=== PATIENT | female | born 1970 | race Caucasian/White ===

== ENCOUNTER 2017-10-05 01:29 | Observation (INO) | payer BC ==
[2017-10-05 01:32] VITALS: BMI 42.9
[2017-10-05 02:16] LABS: BASO # 0.1 K/uL (0.0-0.2); BASO % 0.7 % (0.0-2.0); EOS # 0.1 K/uL (0.0-0.7); HEMOGLOBIN 13.1 g/dL (11.0-16.0); LYMPH # 3.5 K/uL (1.0-4.3); LYMPH % 38.1 % (20.0-40.0); MEAN CELL VOLUME 82.9 fL (81.0-99.0); MEAN CORPUSCULAR HEMOGLOBIN 27.7 pg (27.0-31.0); MEAN CORPUSCULAR HGB CONC 33.5 g/dL (33.0-37.0); MONO # 0.8 K/uL (0.0-0.8); MONO % 9.1 % (0.0-10.0); NEUT # 4.7 K/uL (1.8-7.0); NEUT % 51.1 % (50.0-75.0); NRBC % 0.1 % (0.0-2.0); RBC 4.73 Mil/uL (3.80-5.20); RED CELL DISTRIBUTION WIDTH 15.3 % (11.5-14.5); WHITE BLOOD COUNT 9.2 K/uL (4.8-10.8)
[2017-10-05 02:23] LABS: SQUAMOUS EPITHIAL 1 /hpf (0-5); URINE BILIRUBIN NEGATIVE (NEGATIVE); URINE BLOOD NEGATIVE (NEGATIVE); URINE CLARITY Clear (Clear); URINE COLOR Colorless (YELLOW); URINE GLUCOSE (UA) NORMAL (Normal); URINE LEUKOCYTE ESTERASE NEG Leu/uL (Negative); URINE PROTEIN NEGATIVE (NEGATIVE); URINE UROBILINOGEN NORMAL mg/dL (0.2-1.0)
--- NOTE | 2017-10-05 02:24 | C.PDOC ---
History Of Present Illness 47 yo female w/PMhx of Iron-def. anemia, lymphedema B/L legs, asthma, BIBA for evaluation of sudden onset of Left sided chest pain developed 2 hours [employer] associated with diaphoresis, radiating down to Left arm, left hand numbness. Pt admits, at present time, pain slightly improved. Otherwise, pt denies recent illness, fever, chills, headache, dizziness, neck pain, cough, wheezing, denies palpitation, dyspnea, abd. pain, V/D, back pain. At the time of evaluation, appears comfortable, not in any apparent distress. Time Seen by Provider: 10/05/17 02:05 Chief Complaint (Nursing): Chest Pain History Per: Patient Past Medical History Reviewed: Historical Data, Nursing Documentation, Vital Signs Vital Signs: Last Vital Signs Temp 98.5 F 10/05/17 01:40 Pulse 79 10/05/17 03:50 Resp 16 10/05/17 03:50 BP 120/67 10/05/17 03:50 Pulse Ox 100 10/05/17 05:54 - Medical History PMH: Anemia, Asthma, Peripheral Edema Denies: CAD, Cardia Arrhythmia, Cardiac Aneurysm, Hypercholesterolemia, Chronic Kidney Disease Surgical History: Denies: Pacemaker - [facility] Procedures ASPIR CURETT UTERUS NEC (11/03/14) ENDOMETRIAL ABLATION (11/03/14) HYSTEROSCOPY (11/03/14) INSERTION OF TOTALLY IMPLANTABLE VASC ACCESS DEVIC (05/25/14) Family History: States: Unknown Family Hx - Social History Hx Tobacco Use: No Hx Alcohol Use: No Hx Substance Use: No - Immunization History Hx Tetanus Toxoid Vaccination: No Hx Influenza Vaccination: No Hx Pneumococcal Vaccination: No Review Of Systems Except As Marked, All Systems Reviewed And Found Negative. Constitutional: Negative for: Fever, Chills Eyes: Negative for: Vision Change ENT: Negative for: Throat Pain Cardiovascular: Positive for: Chest Pain. Negative for: Palpitations, Orthopnea , Paroxysmal Noc. Dyspnea, Edema, Light Headedness Respiratory: Negative for: Cough, Shortness of Breath, Pleuritic Pain, Sputum, Wheezing Gastrointestinal: Negative for: Nausea, Vomiting, Abdominal Pain Genitourinary: Negative for: Incontinence Musculoskeletal: Negative for: Neck Pain, Back Pain Skin: Negative for: Rash Neurological: Negative for: Altered Mental Status, Headache, Dizziness Physical Exam - Physical Exam Appears: Well, Non-toxic, No Acute Distress Skin: Normal Color, Warm, Dry, No Rash Head: Normacephalic Eye(s): bilateral: PERRL Nose: No Flaring Oral Mucosa: Moist Throat: No Erythema, No Drooling Neck: Trachea Midline, Supple Cardiovascular: Rhythm Regular, No Murmur, No JVD, Other ((-) carotid bruits B/L ) Respiratory: No Decreased Breath Sounds, No Accessory Muscle Use, No Stridor, No Wheezing, No Plerual Rub Gastrointestinal/Abdominal: Soft, No Tenderness, No Distention, No Guarding Back: No CVA Tenderness Extremity: Normal ROM, No Deformity, Swelling (B/L diffuse legs edema, non- pitting) Neurological/Psych: Oriented x3, Normal Speech ED Course And Treatment - Laboratory Results Result Diagrams: 10/05/17 02:07 10/05/17 02:07 Lab Interpretation: No Acute Changes ECG: Interpreted By Me, Viewed By Me ECG Rhythm: Sinus Rhythm Interpretation Of ECG: SR@73/min, NAD, no acute T wave or ST-T changes. O2 Sat by Pulse Oximetry: 100 Pulse Ox Interpretation: Normal - Radiology CXR: Interpreted by Me, Viewed By Me CXR Interpretation: Yes: No Acute Disease Progress Note: On re-eval, pt reports mild improvemnet in chest pain after ED treatment. PMD was called #3, no answer. Admission discussed with med-on-call Amina Arenas and admission arranged. Disposition - Disposition Disposition: HOSPITALIZED Disposition Time: 03:28 Condition: STABLE Forms: [facility] ([place]) - Clinical Impression Clinical Impression: Chest pain
[2017-10-05 02:26] LABS: HCG,QUALITATIVE URINE NEGATIVE (NEGATIVE); INR 0.9; PROTHROMBIN TIME 9.6 SECONDS (9.7-12.2)
[2017-10-05 02:27] LABS: ALBUMIN 3.6 g/dL (3.5-5.0); ALT/SGPT 29 U/L (9-52); AST/SGOT 16 U/L (14-36); BLOOD UREA NITROGEN 15 mg/dL (7-17); CALCIUM 8.9 mg/dl (8.6-10.4); GFR AFRICAN-AMERICAN > 60; GFR NON-AFRICAN AMERICAN > 60
[2017-10-05] MEDS ORDERED: Aspirin 325 mg EC Tablets PO ONE (02:45)
[2017-10-05 03:03] LABS: B-TYPE NATRIURETIC PEPTIDE 87.5 pg/mL (0-450)
[2017-10-05] MEDS ORDERED: Enoxaparin 40 mg Syringe SC SCH (10:00)
--- NOTE | 2017-10-05 10:04 | CP.PCM.CON ---
History of Present Illness - History of Present Illness History of Present Illness: I was asked to evaluate patient by Dr Figueroa. Patient is a 47 year old female with a PMH HTN, hypercholesterolemia, anemia who presents with chest pain. Patient states she was at home when she developed pressure which woke her from sleep. She denies previous chest pain or dyspnea. She no longer has chest pain. Initial cardiac enzyme and pro BNP is normal. Review of Systems - Constitutional Constitutional: absent: As Per HPI, Anorexia, Chills, Daytime Sleepiness, Excessive Sweating, Fatigue, Fever, Frequent Falls, Headache, Increased Appetite , Lethargy, Malaise, Night Sweats, Snoring, Sleep Apnea, Weight Gain, Weight Loss, Weakness, Other - EENT Eyes: absent: As Per HPI, Blind Spots, Blurred Vision, Change in Vision, Decreased Night Vision, Diplopia, Discharge, Dry Eye, Exophthalmos, Floaters, Irritation, Itchy Eyes, Loss of Peripheral Vision, Pain, Photophobia, Requires Corrective Lenses, Sees Flashes, Spots in Vision, Tunnel Vision, Other Visual Disturbances, Loss of Vision, Other Ears: absent: As Per HPI, Decreased Hearing, Ear Discharge, Ear Pain, Tinnitus, Abnormal Hearing, Disequilibrium, Dizziness, Other Nose/Mouth/Throat: absent: As Per HPI, Epistaxis, Nasal Congestion, Nasal Discharge, Nasal Obstruction, Nasal Trauma, Nose Pain, Post Nasal Drip, Sinus Pain, Sinus Pressure, Bleeding Gums, Change in Voice, Dental Pain, Dry Mouth, Dysphagia, Halitosis, Hoarsness, Lip Swelling, Mouth Lesions, Mouth Pain, Odynophagia, Sore Throat, Throat Swelling, Tongue Swelling, Facial Pain, Neck Pain, Neck Mass, Other - Cardiovascular Cardiovascular: absent: As Per HPI, Acrocyanosis, Chest Pain, Chest Pain at Rest , Chest Pain with Activity, Claudication, Diaphoresis, Dyspnea, Dyspnea on Exertion, Edema, Irregular Heart Rhythm, Pain Radiating to Arm/Neck/Jaw, Leg Edema, Leg Ulcers, Lightheadedness, Orthopnea, Palpitations, Paroxysmal Nocturnal Dyspnea, Pedal Edema, Radiating Pain, Rapid Heart Rate, Slow Heart Rate, Syncope, Other - Respiratory Respiratory: absent: As Per HPI, Cough, Dyspnea, Hemoptysis, Dyspnea on Exertion , Wheezing, Snoring, Stridor, Pain on Inspiration, Chest Congestion, Excessive Mucous Production, Change in Mucous Color, Pain with Coughing, Other - Gastrointestinal Gastrointestinal: absent: As Per HPI, Abdominal Pain, Belching, Bloating, Change in Bowel Habits, Change in Stool Character, Coffee Ground Emesis, Constipation, Cramping, Diarrhea, Dyspepsia, Dysphagia, Early Satiety, Excessive Flatus, Fecal Incontinence, Heartburn, Hematemesis, Hematochezia, Loose Stools, Melena, Nausea, Odynophagia, Temesmus, Vomiting, Other - Genitourinary Genitourinary: absent: As Per HPI, Change in Urinary Stream, Difficulty Urinating, Dysuria, Flank Pain, Hematuria, Pyuria, Nocturia, Urinary Incontinence, Urinary Frequency, Urinary Hesitance, Urinary Urgency, Voiding Freq/Small Amts, Freq UTI, Hx Renal/Bladder Calculi, Hx /Renal Surgery, Bladder Distension, Other - Musculoskeletal Musculoskeletal: absent: As Per HPI, Abnormal Gait, Arthralgias, Atrophy, Back Pain, Deformity, Joint Swelling, Limited Range of Motion, Loss of Height, Muscle Cramps, Muscle Weakness, Myalgias, Neck Pain, Numbness, Radiating Pain into Limb, Stiffness, Tingling, Other - Integumentary Integumentary: absent: As Per HPI, Acne, Alopecia, Bleeding Lesions, Change in Hair, Change in Nails, Change in Pigmentation, Changing Lesions, Dry Skin, Erythema, Furuncle, Hirsutism, Lesions, New Lesions, Non-Healing Lesions, Photosensitivity, Pruritus, Rash, Skin Pain, Skin Ulcer, Sores, Striae, Swelling , Unusual Bruising, Wounds, Jaundice, Other - Neurological Neurological: absent: As Per HPI, Abnormal Gait, Abnormal Hearing, Abnormal Movements, Abnormal Speech, Behavioral Changes, Burning Sensations, Confusion, Convulsions, Disequilibrium, Dizziness, Numbness, Focal Weakness, Frequent Falls , Headaches, Lack of Coordination, Loss of Vision, Memory Loss, Paresthesias, Radicular Pain, Restless Legs, Sensory Deficit, Syncope, Tingling, Tremor, Vertigo, Weakness, Other Visual Disturbances, Other - Psychiatric Psychiatric: absent: As Per HPI, Abnormal Sleep Pattern, Anhedonia, Anxiety, Auditory Hallucinations, Behavioral Changes, Change in Appetite, Change in Libido, Confusion, Depression, Difficulty Concentrating, Hallucinations, Homicidal Ideation, Hopelessness, Irritability, Memory Loss, Mood Swings, Panic Attacks, Paranoia, Suicidal Ideation, Visual Hallucinations, Tactile Hallucinations, Other - Endocrine Endocrine: absent: As Per HPI, Change in Body Appearance, Change in Libido, Cold Intolorance, Deepening of Voice, Excessive Sweating, Fatigue, Flushing, Heat Intolorance, Increase in Ring/Shoe/Hat Size, Palpitations, Polydipsia, Polyphagia, Polyuria, Other - Hematologic/Lymphatic Hematologic: absent: As Per HPI, Easy Bleeding, Easy Bruising, Lymphadenopathy, Other Past Patient History - Past Medical History & Family History Past Medical History?: Yes - Past Social History Smoking Status: Never Smoked - CARDIAC Hx Cardia Arrhythmia: No Hx Hypercholesterolemia: No Hx Pacemaker: No Hx Peripheral Edema: Yes - PULMONARY Hx Asthma: Yes - NEUROLOGICAL Hx Neurological Disorder: No - HEENT Hx HEENT Problems: No - RENAL Hx Chronic Kidney Disease: No - ENDOCRINE/METABOLIC Hx Endocrine Disorders: No - HEMATOLOGICAL/ONCOLOGICAL Hx Anemia: Yes - INTEGUMENTARY Hx Dermatological Problems: No - MUSCULOSKELETAL/RHEUMATOLOGICAL Hx Musculoskeletal Disorders: No Hx Falls: No - GASTROINTESTINAL Hx Gastrointestinal Disorders: No - GENITOURINARY/GYNECOLOGICAL Hx Reproductive Disorders: Yes (FIBROIDS) - PSYCHIATRIC Hx Substance Use: No - SURGICAL HISTORY Hx Surgeries: Yes Hx Section: Yes Hx Orthopedic Surgery: Yes (RT ANKLE SX 2005) Hx Vascular Access Device: Yes (LIFEPORT) - ANESTHESIA Hx Anesthesia: Yes Hx Anesthesia Reactions: Yes (N/V) Hx Malignant Hyperthermia: No Meds Allergies/Adverse Reactions: Allergies Allergy/AdvReac Type Severity Reaction Status Date / Time Penicillins Allergy Verified 10/05/17 01:43 - Medications Medications: Current Medications Enoxaparin Sodium (Lovenox) 40 mg SC DAILY DA Physical Exam - Constitutional Appears: Non-toxic - Head Exam Head Exam: NORMAL INSPECTION - Eye Exam Eye Exam: Normal appearance - ENT Exam ENT Exam: Mucous Membranes Moist - Neck Exam Neck exam: Positive for: Full Rom - Respiratory Exam Respiratory Exam: NORMAL BREATHING PATTERN - Cardiovascular Exam Cardiovascular Exam: REGULAR RHYTHM - GI/Abdominal Exam GI & Abdominal Exam: Normal Bowel Sounds - Rectal Exam Rectal Exam: Deferred - Extremities Exam Extremities exam: Negative for: pedal edema - Back Exam Back exam: NORMAL INSPECTION - Neurological Exam Neurological exam: Alert, Oriented x3 - Psychiatric Exam Psychiatric exam: Normal Affect - Skin Skin Exam: Normal Color Results - Vital Signs Recent Vital Signs: Last Vital Signs Temp 98.7 F 10/05/17 08:57 Pulse 63 10/05/17 08:57 Resp 16 10/05/17 07:16 BP 124/80 10/05/17 08:57 Pulse Ox 98 10/05/17 08:57 - Labs Result Diagrams: 10/05/17 02:07 10/05/17 02:07 Labs: Laboratory Results - last 24 hr 10/05/17 10/05/17 10/05/17 02:07 02:07 02:15 WBC 9.2 D RBC 4.73 Hgb 13.1 Hct 39.3 MCV 82.9 D MCH 27.7 MCHC 33.5 RDW 15.3 H Plt Count 219 MPV 9.0 Neut % (Auto) 51.1 Lymph % (Auto) 38.1 [place] % (Auto) 9.1 Eos % (Auto) 1.0 Baso % (Auto) 0.7 Neut # (Auto) 4.7 Lymph # (Auto) 3.5 [place] # (Auto) 0.8 Eos # (Auto) 0.1 Baso # (Auto) 0.1 PT 9.6 L INR 0.9 APTT 71 H Sodium 140 Potassium 3.6 Chloride 104 Carbon Dioxide 26 Anion Gap 13 BUN 15 Creatinine 0.7 Est GFR ( Amer) > 60 Est GFR (Non-Af Amer) > 60 Random Glucose 141 H Calcium 8.9 Total Bilirubin 0.3 AST 16 ALT 29 Alkaline Phosphatase 120 Troponin I < 0.0120 NT-Pro-B Natriuret Pep Total Protein 7.2 Albumin 3.6 Globulin 3.6 Albumin/Globulin Ratio 1.0 TSH 3rd Generation Urine Color Urine Clarity Urine pH Ur Specific [place] Urine Protein Urine Glucose (UA) Urine Ketones Urine Blood Urine Nitrate Urine Bilirubin Urine Urobilinogen Ur Leukocyte Esterase Urine WBC (Auto) Urine RBC (Auto) Ur Squamous Epith Cells Urine HCG, Qual 10/05/17 10/05/17 02:15 02:45 WBC RBC Hgb Hct MCV MCH MCHC RDW Plt Count MPV Neut % (Auto) Lymph % (Auto) [place] % (Auto) Eos % (Auto) Baso % (Auto) Neut # (Auto) Lymph # (Auto) [place] # (Auto) Eos # (Auto) Baso # (Auto) PT INR APTT Sodium Potassium Chloride Carbon Dioxide Anion Gap BUN Creatinine Est GFR ( Amer) Est GFR (Non-Af Amer) Random Glucose Calcium Total Bilirubin AST ALT Alkaline Phosphatase Troponin I NT-Pro-B Natriuret Pep 87.5 Total Protein Albumin Globulin Albumin/Globulin Ratio TSH 3rd Generation 8.09 H Urine Color Colorless Urine Clarity Clear Urine pH 6.0 Ur Specific [place] 1.008 Urine Protein Negative Urine Glucose (UA) Normal Urine Ketones Negative Urine Blood Negative Urine Nitrate Negative Urine Bilirubin Negative Urine Urobilinogen Normal Ur Leukocyte Esterase Neg Urine WBC (Auto) < 1 Urine RBC (Auto) < 1 Ur Squamous Epith Cells 1 Urine HCG, Qual Negative - EKG Data EKG Interpreted by: Myself EKG shows normal: Sinus rhythm Assessment & Plan (1) Chest pain Assessment and Plan: initial troponin is negative. EKG normal sinus rhythm and pro BNP is normal. Recommend repeat troponin. If negative x 3, patient is table for discharge. Recommend [id number] stress test Status: Acute
--- NOTE | 2017-10-05 10:44 | RAD ---
HISTORY: chest pain chest pain COMPARISON: Comparison made with prior chest radiograph 07/18/2014 TECHNIQUE: Chest PA and lateral FINDINGS: In situ right IJ MediPort with tip in the SVC. LUNGS: Poor inspiration with low lung volumes, crowded bronchovascular markings and minor bibasilar atelectasis PLEURA: No significant pleural effusion identified. No pneumothorax apparent. CARDIOVASCULAR: Normal. OSSEOUS STRUCTURES: No significant abnormalities. VISUALIZED UPPER ABDOMEN: Normal. OTHER FINDINGS: None. IMPRESSION: Poor inspiration with low lung volumes, crowded bronchovascular markings and minor bibasilar atelectasis
--- NOTE | 2017-10-05 15:20 | CP.PCM.HP ---
Past Patient History - Past Medical History & Family History Past Medical History?: Yes - Past Social History Smoking Status: Never Smoked - CARDIAC Hx Cardia Arrhythmia: No Hx Hypercholesterolemia: No Hx Pacemaker: No Hx Peripheral Edema: Yes - PULMONARY Hx Asthma: Yes - NEUROLOGICAL Hx Neurological Disorder: No - HEENT Hx HEENT Problems: No - RENAL Hx Chronic Kidney Disease: No - ENDOCRINE/METABOLIC Hx Endocrine Disorders: No - HEMATOLOGICAL/ONCOLOGICAL Hx Anemia: Yes - INTEGUMENTARY Hx Dermatological Problems: No - MUSCULOSKELETAL/RHEUMATOLOGICAL Hx Musculoskeletal Disorders: No Hx Falls: No - GASTROINTESTINAL Hx Gastrointestinal Disorders: No - GENITOURINARY/GYNECOLOGICAL Hx Reproductive Disorders: Yes (FIBROIDS) - PSYCHIATRIC Hx Substance Use: No - SURGICAL HISTORY Hx Surgeries: Yes Hx Section: Yes Hx Orthopedic Surgery: Yes (RT ANKLE SX 2005) Hx Vascular Access Device: Yes (LIFEPORT) - ANESTHESIA Hx Anesthesia: Yes Hx Anesthesia Reactions: Yes (N/V) Hx Malignant Hyperthermia: No Meds Allergies/Adverse Reactions: Allergies Allergy/AdvReac Type Severity Reaction Status Date / Time Penicillins Allergy Verified 10/05/17 01:43 Physical Exam - Constitutional Appears: Well - Head Exam Head Exam: ATRAUMATIC, NORMAL INSPECTION, NORMOCEPHALIC - Eye Exam Eye Exam: EOMI, Normal appearance, PERRL Pupil Exam: NORMAL ACCOMODATION, PERRL - ENT Exam ENT Exam: Mucous Membranes Moist, Normal Exam - Neck Exam Neck exam: Positive for: Normal Inspection - Respiratory Exam Respiratory Exam: Decreased Breath Sounds - Cardiovascular Exam Cardiovascular Exam: REGULAR RHYTHM, +S1, +S2 - GI/Abdominal Exam GI & Abdominal Exam: Diminished Bowel Sounds, Soft - Rectal Exam Rectal Exam: Deferred Results - Vital Signs Recent Vital Signs: Last Vital Signs Temp 98.7 F 10/05/17 08:57 Pulse 63 10/05/17 08:57 Resp 16 10/05/17 07:16 BP 124/80 10/05/17 08:57 Pulse Ox 98 10/05/17 08:57 - Labs Result Diagrams: 10/05/17 02:07 10/05/17 02:07 Labs: Laboratory Results - last 24 hr 10/05/17 10/05/17 10/05/17 02:07 02:07 02:15 WBC 9.2 D RBC 4.73 Hgb 13.1 Hct 39.3 MCV 82.9 D MCH 27.7 MCHC 33.5 RDW 15.3 H Plt Count 219 MPV 9.0 Neut % (Auto) 51.1 Lymph % (Auto) 38.1 [place] % (Auto) 9.1 Eos % (Auto) 1.0 Baso % (Auto) 0.7 Neut # (Auto) 4.7 Lymph # (Auto) 3.5 [place] # (Auto) 0.8 Eos # (Auto) 0.1 Baso # (Auto) 0.1 PT 9.6 L INR 0.9 APTT 71 H Sodium 140 Potassium 3.6 Chloride 104 Carbon Dioxide 26 Anion Gap 13 BUN 15 Creatinine 0.7 Est GFR ( Amer) > 60 Est GFR (Non-Af Amer) > 60 Random Glucose 141 H Calcium 8.9 Total Bilirubin 0.3 AST 16 ALT 29 Alkaline Phosphatase 120 Troponin I < 0.0120 NT-Pro-B Natriuret Pep Total Protein 7.2 Albumin 3.6 Globulin 3.6 Albumin/Globulin Ratio 1.0 TSH 3rd Generation Urine Color Urine Clarity Urine pH Ur Specific [place] Urine Protein Urine Glucose (UA) Urine Ketones Urine Blood Urine Nitrate Urine Bilirubin Urine Urobilinogen Ur Leukocyte Esterase Urine WBC (Auto) Urine RBC (Auto) Ur Squamous Epith Cells Urine HCG, Qual 10/05/17 10/05/17 10/05/17 02:15 02:45 10:42 WBC RBC Hgb Hct MCV MCH MCHC RDW Plt Count MPV Neut % (Auto) Lymph % (Auto) [place] % (Auto) Eos % (Auto) Baso % (Auto) Neut # (Auto) Lymph # (Auto) [place] # (Auto) Eos # (Auto) Baso # (Auto) PT INR APTT Sodium Potassium Chloride Carbon Dioxide Anion Gap BUN Creatinine Est GFR ( Amer) Est GFR (Non-Af Amer) Random Glucose Calcium Total Bilirubin AST ALT Alkaline Phosphatase Troponin I < 0.0120 NT-Pro-B Natriuret Pep 87.5 Total Protein Albumin Globulin Albumin/Globulin Ratio TSH 3rd Generation 8.09 H Urine Color Colorless Urine Clarity Clear Urine pH 6.0 Ur Specific [place] 1.008 Urine Protein Negative Urine Glucose (UA) Normal Urine Ketones Negative Urine Blood Negative Urine Nitrate Negative Urine Bilirubin Negative Urine Urobilinogen Normal Ur Leukocyte Esterase Neg Urine WBC (Auto) < 1 Urine RBC (Auto) < 1 Ur Squamous Epith Cells 1 Urine HCG, Qual Negative
[2017-10-05 16:07] VITALS: BP 108/73; PULSE 84; RESP 20; TEMP 98.2; O2SAT 96
[2017-10-05 19:00] LABS: CK-MB < 0.22 ng/mL (0.0-3.38)
--- NOTE | 2017-10-08 08:46 | CARD ---
APPROVED REPORT EKG Measurement Heart [id number] <Conclusion> Normal sinus rhythm Normal ECG
--- NOTE | 2017-10-08 08:54 | CARD ---
APPROVED REPORT EKG Measurement Heart [id number] <Conclusion> Sinus rhythm with occasional premature ventricular complexes Otherwise normal ECG
== END 2017-10-05 20:15 | disposition home or self-care (01) ==
LOC: C.ER 01:29 → INTOOBSV 03:53 → C.6T 03:53
PROVIDERS: ADMIT Internal Medicine Nephrology; ATTEND Internal Medicine Nephrology
DX: R07.89 Other chest pain (principal); I10 Essential (primary) hypertension; J45.909 Unspecified asthma, uncomplicated; D50.9 Iron deficiency anemia, unspecified; I89.0 Lymphedema, not elsewhere classified; E78.00 Pure hypercholesterolemia, unspecified
CPT/HCPCS: 71046; 80053; 81001; 83880; 84443; 84484; 84703; 85025; 85610; 85730; 93005; 99285; G0378; J1642; J1650

== ENCOUNTER 2018-05-05 14:19 | Inpatient (IN) | payer BC, MEDICARE ==
[2018-05-05 14:19] VITALS: BMI 42.9
[2018-05-05] MEDS ORDERED: Albuterol 0.083% Inhal Sol (2.5 mg/3 mL) UD IH STA ×2 (15:45→18:06)
[2018-05-05] MEDS ORDERED: Albuterol 0.083% Inhal Sol (2.5 mg/3 mL) UD ONE ×3 (16:01→19:36)
--- NOTE | 2018-05-05 16:22 | RAD ---
Date of service: 05/05/2018 HISTORY: COUGH, WHEEZING COMPARISON: 10/05/2017 TECHNIQUE: Chest PA and lateral FINDINGS: LUNGS: No active pulmonary disease. PLEURA: No significant pleural effusion identified. No pneumothorax apparent. CARDIOVASCULAR: No aortic atherosclerotic calcification present. Mild cardiomegaly probable. MediPort tip in superior vena cava right atrial junction-as before. Possible minimal pulmonary venous congestion-similar appearing OSSEOUS STRUCTURES: No significant abnormalities. VISUALIZED UPPER ABDOMEN: Normal. OTHER FINDINGS: None. IMPRESSION: No consolidation. Mild cardiomegaly and possible mild pulmonary venous congestion. Central venous port as above.
--- NOTE | 2018-05-05 17:18 | C.PDOC ---
History Of Present Illness 48 y/o female presents to the ED complaining of a productive cough, SOB, and wheezing for last 3 days. Associated with pleuritic chest pain. Patient reports PMHx of asthma, states current symptoms feel similar to prior episodes of asthma exacerbation. She denies any fever, chills, dizziness, palpitations, nausea, or vomiting. Patient also has hx of chronic leg edema, denies known hx of CHF or fluid in the lungs. Time Seen by Provider: 05/05/18 15:37 Chief Complaint (Nursing): Shortness Of Breath History Per: Patient History/Exam Limitations: no limitations Onset/Duration Of Symptoms: Days (x3) Current Symptoms Are (Timing): Still Present Initiating Event: Upper Respiratory Illness Exacerbating Factor(s): Coughing Associated Symptoms: Productive Cough, Ankle/Leg Swelling Past Medical History Reviewed: Historical Data, Nursing Documentation, Vital Signs Vital Signs: Last Vital Signs Temp 98.8 F 05/05/18 14:21 Pulse 93 H 05/05/18 14:21 Resp 20 05/05/18 14:21 BP 123/81 05/05/18 14:21 Pulse Ox 95 05/05/18 14:21 - Medical History PMH: Anemia, Asthma, Peripheral Edema Denies: CAD, Cardia Arrhythmia, Cardiac Aneurysm, CHF, Hypercholesterolemia, Chronic Kidney Disease Surgical History: Denies: Pacemaker - [facility] Procedures ASPIR CURETT UTERUS NEC (11/03/14) ENDOMETRIAL ABLATION (11/03/14) HYSTEROSCOPY (11/03/14) INSERTION OF TOTALLY IMPLANTABLE VASC ACCESS DEVIC (05/25/14) Family History: States: Unknown Family Hx - Social History Hx Tobacco Use: No Hx Alcohol Use: No Hx Substance Use: No - Immunization History Hx Tetanus Toxoid Vaccination: No Hx Influenza Vaccination: No Hx Pneumococcal Vaccination: No Review Of Systems Constitutional: Negative for: Fever, Chills, Sweats Cardiovascular: Positive for: Chest Pain. Negative for: Palpitations Respiratory: Positive for: Cough, Shortness of Breath, Pleuritic Pain, Sputum, Wheezing Gastrointestinal: Negative for: Nausea, Vomiting, Diarrhea Musculoskeletal: Positive for: Other (Chronic lower extremity edema). Negative for: Leg Pain Skin: Negative for: Rash Neurological: Negative for: Weakness, Headache, Dizziness Physical Exam - Physical Exam Appears: Non-toxic, No Acute Distress, Other (Speaking in full sentences) Skin: Warm, Dry Head: Atraumatic, Normacephalic Eye(s): bilateral: Normal Inspection, PERRL, EOMI Oral Mucosa: Moist Neck: Normal ROM Chest: Symmetrical Cardiovascular: Rhythm Regular, No Murmur Respiratory: No Accessory Muscle Use, No Rales, Rhonchi (scattered bilaterally), Wheezing (mild expiratory wheezing bilaterally) Gastrointestinal/Abdominal: Soft, No Tenderness, No Distention Extremity: Bilateral: Atraumatic, Normal Color And Temperature, Other (+3 pitting edema to bilateral lower extremities, chronic) Pulses: Left Dorsalis Pedis: Normal, Right Dorsalis Pedis: Normal Neurological/Psych: Oriented x3, Normal Speech ED Course And Treatment - Laboratory Results Result Diagrams: 05/05/18 18:33 05/05/18 18:33 ECG: Interpreted By Me, Viewed By Me (NSR 84 bpm, normal axis, no acute ST/T wave changes) ECG Interpretation: No Acute Changes O2 Sat by Pulse Oximetry: 95 (RA) Pulse Ox Interpretation: Normal - Other Rad CXR X-Ray: Read By Radiologist Interpretation: Accession No. : [id number]. Patient Name / ID : JUAN DANIEL FOREMAN I / [id number]. Exam Date : 05/05/2018 16:02:07 ( Approved ). Study Comment : Sex / Age : F / 48Y. Creator : Juani Moore V. Dictator : Juani Moore V. Paper Goods Machine Set Up Operator : Outreach Team Member : Juani Moore V. Approver2 : Report Date : 05/05/2018 16:18:52. My Comment : . Date of service: 05/05/2018. HISTORY: COUGH, WHEEZING. COMPARISON: 10/05/2017. TECHNIQUE: Chest PA and lateral. FINDINGS: LUNGS: No active pulmonary disease. PLEURA: No significant pleural effusion identified. No pneumothorax apparent. CARDIOVASCULAR: No aortic atherosclerotic calcification present. Mild cardiomegaly probable. MediPort tip in superior vena cava right atrial junction-as before. Possible minimal pulmonary venous congestion-similar appearing. OSSEOUS STRUCTURES: No significant abnormalities. VISUALIZED UPPER ABDOMEN: Normal. OTHER FINDINGS: None. IMPRESSION: No consolidation. Mild cardiomegaly and possible mild pulmonary venous congestion. Central venous port as above. Progress Note: CXR ordered and reviewed, no infiltrate. Administered 60 mg PO prednisone and Albuterol nebulizer treatment. On reevaluation, patient is still wheezing. Given second Albuterol neb. Ordered blood work with cardiac enzymes. 18:50 Patient continues to wheeze after treatments, will admit for asthma exacerbation and viral URI. - Physician Consult Information Time Consulting Physician Contacted: 19:00 Physician Contacted: Last Hollingsworth Outcome Of Conversation: patient accepted for admission Disposition Counseled Patient/Family Regarding: Studies Performed, Diagnosis - Disposition Disposition: HOSPITALIZED Disposition Time: 19:03 Condition: STABLE Forms: [facility] (Uzbek) - POA Present On Arrival: None - Scribe Statement The provider has reviewed the documentation as recorded by the Scribe (Annabelle Dykes) Provider Attestation: All medical record entries made by the Scribe were at my direction and personally dictated by me. I have reviewed the chart and agree that the record accurately reflects my personal performance of the history, physical exam, medical decision making, and the department course for this patient. I have also personally directed, reviewed, and agree with the discharge instructions and disposition. Decision To Admit - Pt Status Changed To: Hospital Disposition Of: Observation - . Bed Request Type: Telemetry
[2018-05-05 18:37] LABS: BASO # 0.1 K/uL (0.0-0.2); BASO % 0.7 % (0.0-2.0); EOS # 0.1 K/uL (0.0-0.7); EOS % 0.8 % (0.0-4.0); LYMPH # 1.1 K/uL (1.0-4.3); LYMPH % 15.4 % (20.0-40.0); MEAN CELL VOLUME 83.2 fL (81.0-99.0); MEAN CORPUSCULAR HEMOGLOBIN 27.4 pg (27.0-31.0); MEAN PLATELET VOLUME 8.5 fL (7.2-11.7); MONO # 0.3 K/uL (0.0-0.8); MONO % 3.9 % (0.0-10.0); NEUT # 5.6 K/uL (1.8-7.0); NEUT % 79.2 % (50.0-75.0); NRBC % 0.1 % (0.0-2.0); RBC 5.11 Mil/uL (3.80-5.20); RED CELL DISTRIBUTION WIDTH 14.4 % (11.5-14.5)
[2018-05-05 18:47] LABS: ALB/GLOB RATIO 1.2 (1.0-2.1); ALBUMIN 4.5 g/dL (3.5-5.0); ALT/SGPT 25 U/L (9-52); AST/SGOT 19 U/L (14-36); BLOOD UREA NITROGEN 10 mg/dL (7-17); CALCIUM 9.7 mg/dl (8.6-10.4); GFR NON-AFRICAN AMERICAN > 60
[2018-05-05 19:01] LABS: B-TYPE NATRIURETIC PEPTIDE 25.6 pg/mL (0-450)
[2018-05-05] MEDS: Albuterol 0.083% Inhal Sol (2.5 mg/3 mL) UD INH SCH (20:00)
--- NOTE | 2018-05-05 21:54 | CP.PCM.HP ---
Past Patient History - Past Medical History & Family History Past Medical History?: Yes - Past Social History Smoking Status: Never Smoked - CARDIAC Hx Cardia Arrhythmia: No Hx Congestive Heart Failure: No Hx Hypercholesterolemia: No Hx Pacemaker: No Hx Peripheral Edema: Yes - PULMONARY Hx Asthma: Yes - NEUROLOGICAL Hx Neurological Disorder: No - HEENT Hx HEENT Problems: No - RENAL Hx Chronic Kidney Disease: No - ENDOCRINE/METABOLIC Hx Endocrine Disorders: No - HEMATOLOGICAL/ONCOLOGICAL Hx Anemia: Yes - INTEGUMENTARY Hx Dermatological Problems: No - MUSCULOSKELETAL/RHEUMATOLOGICAL Hx Musculoskeletal Disorders: No Hx Falls: No - GASTROINTESTINAL Hx Gastrointestinal Disorders: No - GENITOURINARY/GYNECOLOGICAL Hx Reproductive Disorders: Yes (FIBROIDS) - PSYCHIATRIC Hx Substance Use: No - SURGICAL HISTORY Hx Surgeries: Yes Hx Section: Yes Hx Orthopedic Surgery: Yes (RT ANKLE SX 2005) Hx Vascular Access Device: Yes (LIFEPORT) - ANESTHESIA Hx Anesthesia: Yes Hx Anesthesia Reactions: Yes (N/V) Hx Malignant Hyperthermia: No Meds Allergies/Adverse Reactions: Allergies Allergy/AdvReac Type Severity Reaction Status Date / Time Penicillins Allergy Verified 05/05/18 14:23 Results - Vital Signs Recent Vital Signs: Last Vital Signs Temp 98 F 05/05/18 17:28 Pulse 107 H 05/05/18 20:00 Resp 22 05/05/18 19:56 BP 122/64 05/05/18 19:56 Pulse Ox 100 05/05/18 19:56 - Labs Result Diagrams: 05/05/18 18:33 05/05/18 18:33 Labs: Laboratory Results - last 24 hr 05/05/18 05/05/18 05/05/18 18:33 18:33 19:09 WBC 7.0 RBC 5.11 Hgb 14.0 Hct 42.6 MCV 83.2 MCH 27.4 MCHC 33.0 RDW 14.4 Plt Count 224 MPV 8.5 Neut % (Auto) 79.2 H Lymph % (Auto) 15.4 L Hernando % (Auto) 3.9 Eos % (Auto) 0.8 Baso % (Auto) 0.7 Neut # (Auto) 5.6 Lymph # (Auto) 1.1 Hernando # (Auto) 0.3 Eos # (Auto) 0.1 Baso # (Auto) 0.1 Sodium 137 Potassium 4.6 Chloride 101 Carbon Dioxide 27 Anion Gap 14 BUN 10 Creatinine 0.7 Est GFR ( Amer) > 60 Est GFR (Non-Af Amer) > 60 Random Glucose 144 H Hemoglobin A1c 6.4 Calcium 9.7 Total Bilirubin 0.7 AST 19 ALT 25 Alkaline Phosphatase 125 Troponin I < 0.0120 NT-Pro-B Natriuret Pep 25.6 Total Protein 8.2 Albumin 4.5 Globulin 3.7 Albumin/Globulin Ratio 1.2
[2018-05-05 23:03] LABS: SQUAMOUS EPITHIAL 14 /hpf (0-5); URINE BACTERIA RARE (<OCC); URINE BILIRUBIN NEGATIVE (NEGATIVE); URINE BLOOD 1+ (NEGATIVE); URINE CLARITY Hazy (Clear); URINE COLOR Yellow (YELLOW); URINE GLUCOSE (UA) NORMAL (Normal); URINE LEUKOCYTE ESTERASE NEG Leu/uL (Negative); URINE PROTEIN NEGATIVE (NEGATIVE); URINE UROBILINOGEN NORMAL mg/dL (0.2-1.0)
[2018-05-05] MEDS ORDERED: Albuterol-Ipratrop 3 mg / 0.5 (3 ml) UD ONE (23:04)
[2018-05-05 23:07] LABS: HCG,QUALITATIVE URINE NEGATIVE (NEGATIVE)
[2018-05-06] MEDS: Albuterol 0.083% Inhal Sol (2.5 mg/3 mL) UD INH SCH ×4 (00:01→19:34)
[2018-05-06] MEDS: guaiFENesin 200 mg/10 ml Syrup UD PO PRN ×3 (00:05→21:29)
[2018-05-06] MEDS ORDERED: guaiFENesin 100 mg/5 ml Syrup UD ONE (00:06)
[2018-05-06] MEDS ORDERED: Albuterol-Ipratrop 3 mg / 0.5 (3 ml) UD ONE ×2 (02:06→09:30)
[2018-05-06] MEDS: Enoxaparin 40 mg Syringe SC SCH (09:37)
--- NOTE | 2018-05-06 11:52 | HP ---
CHIEF COMPLAINT: Shortness of breath. HISTORY OF PRESENT ILLNESS: This is a 48-year-old female with history of bronchial asthma, mild, intermittent, hospitalized years ago with asthma, since then she has been stable. days ago, she started having cough, congestion, shortness of breath, wheezing. There is no sputum production. No fever. No chills. She has runny nose, body aches, tiredness, anorexia, malaise, and fatigue. She has no medications. She was coughing, wheezing, trying to control her symptoms at home with cough medicine with no response and she came to the emergency room. There is no history of polyuria, polydipsia, polyphagia. There is no history of joint pain, hip pain. There is no chest pain. There is no history of headache, dizziness, vertigo. There is no history of trauma or loss of consciousness. No history of seizure-like activity. PAST MEDICAL HISTORY: Bronchial asthma. SOCIAL HISTORY: Nonsmoker. Non-EtOH user. CURRENT MEDICATIONS: None. PHYSICAL EXAMINATION: GENERAL: A middle-aged female in mild respiratory distress. VITAL SIGNS: Blood pressure 122/81, pulse 92, respiratory rate 20, temperature 98.8. SKIN: No rashes. No bruises. No purpura. No petechiae. No ecchymosis. HEENT: Atraumatic, normocephalic. Negative pallor. Negative jaundice. Extraocular movements are intact. NECK: Supple. She has some accessory muscles of respiration. No JVD. No lymph node. No thyromegaly. No carotid bruits. CHEST: Chest wall, bilateral symmetrical expansion. LUNGS: Bilateral respiratory rales, rhonchi. CARDIOVASCULAR SYSTEM: S1 and S2, regular. No tachycardia. ABDOMEN: Soft, nontender. Bowel sounds are positive. RECTAL: No masses. No bleeding. PELVIS: Negative. EXTREMITIES: There is +4 nonpitting edema. CENTRAL NERVOUS SYSTEM: Awake, alert, oriented x3. ASSESSMENT: 1. Acute upper respiratory tract infection. 2. Exacerbation of bronchial asthma. 3. Chronic venous insufficiency with edema. PLAN: The patient has been admitted, seen and examined, detailed orders are written. Please consult your orders for plan of care. Last Hollingsworth MD [facility] # [id number]
[2018-05-06] MEDS: Pantoprazole 40 mg EC Tab PO SCH (18:45)
--- NOTE | 2018-05-06 18:56 | CP.PCM.CON ---
History of Present Illness - History of Present Illness History of Present Illness: reason for consultation; Shortness of breath and cough 48-year-old female with history of asthma presented to emergency room with wors ening shortness of breath/wheezing and cough for the past 3 days not responding to rescue inhaler. Denies fever or chills, denies chest pain, denies nausea or vomiting. Review of Systems - Review of Systems All systems: reviewed and no additional remarkable complaints except (shortness of breath and cough) Past Patient History - Past Medical History & Family History Past Medical History?: Yes - Past Social History Smoking Status: Never Smoked - CARDIAC Hx Cardia Arrhythmia: No Hx Congestive Heart Failure: No Hx Hypercholesterolemia: No Hx Pacemaker: No Hx Peripheral Edema: Yes - PULMONARY Hx Asthma: Yes - NEUROLOGICAL Hx Neurological Disorder: No - HEENT Hx HEENT Problems: No - RENAL Hx Chronic Kidney Disease: No - ENDOCRINE/METABOLIC Hx Endocrine Disorders: No - HEMATOLOGICAL/ONCOLOGICAL Hx Anemia: Yes - INTEGUMENTARY Hx Dermatological Problems: No - MUSCULOSKELETAL/RHEUMATOLOGICAL Hx Falls: Yes - GASTROINTESTINAL Hx Gastrointestinal Disorders: No - GENITOURINARY/GYNECOLOGICAL Hx Reproductive Disorders: Yes (FIBROIDS) - PSYCHIATRIC Hx Substance Use: No - SURGICAL HISTORY Hx Surgeries: Yes Hx Section: Yes Hx Orthopedic Surgery: Yes (RT ANKLE SX 2005) Hx Vascular Access Device: Yes (LIFEPORT) - ANESTHESIA Hx Anesthesia: Yes Hx Anesthesia Reactions: Yes (N/V) Hx Malignant Hyperthermia: No Meds Allergies/Adverse Reactions: Allergies Allergy/AdvReac Type Severity Reaction Status Date / Time Penicillins Allergy Verified 05/05/18 14:23 - Medications Medications: Current Medications Albuterol Sulfate (Albuterol 0.083% Inhal Rupinder (2.5 Mg/3 Ml) Ud) 2.5 mg INH RQ6 DA Last Admin: 05/06/18 10:32 Dose: 2.5 mg Enoxaparin Sodium (Lovenox) 40 mg SC DAILY DA Last Admin: 05/06/18 09:37 Dose: 40 mg Guaifenesin (Robitussin) 200 mg PO Q4H PRN PRN Reason: Cough and congestion Last Admin: 05/06/18 09:36 Dose: 200 mg Methylprednisolone (Solu-Medrol) 60 mg IV Q12 DA Last Admin: 05/06/18 09:37 Dose: 60 mg Pantoprazole Sodium (Protonix Ec Tab) 40 mg PO DAILY DA Last Admin: 05/06/18 18:45 Dose: 40 mg Physical Exam - Head Exam Head Exam: ATRAUMATIC, NORMOCEPHALIC - ENT Exam ENT Exam: Mucous Membranes Moist - Neck Exam Neck exam: Positive for: Normal Inspection - Respiratory Exam Respiratory Exam: Rhonchi - Cardiovascular Exam Cardiovascular Exam: REGULAR RHYTHM - GI/Abdominal Exam GI & Abdominal Exam: Normal Bowel Sounds - Extremities Exam Extremities exam: Positive for: normal inspection - Neurological Exam Neurological exam: Alert, Oriented x3 Results - Vital Signs Recent Vital Signs: Last Vital Signs Temp 98.0 F 05/06/18 15:15 Pulse 80 05/06/18 15:15 Resp 20 05/06/18 15:15 BP 118/70 05/06/18 15:15 Pulse Ox 94 L 05/06/18 15:15 - Labs Result Diagrams: 05/05/18 18:33 05/05/18 18:33 Labs: Laboratory Results - last 24 hr 05/05/18 05/05/18 05/05/18 18:33 18:33 19:09 WBC 7.0 RBC 5.11 Hgb 14.0 Hct 42.6 MCV 83.2 MCH 27.4 MCHC 33.0 RDW 14.4 Plt Count 224 MPV 8.5 Neut % (Auto) 79.2 H Lymph % (Auto) 15.4 L Ector % (Auto) 3.9 Eos % (Auto) 0.8 Baso % (Auto) 0.7 Neut # (Auto) 5.6 Lymph # (Auto) 1.1 Ector # (Auto) 0.3 Eos # (Auto) 0.1 Baso # (Auto) 0.1 Hemoglobin A1c 6.4 Troponin I < 0.0120 NT-Pro-B Natriuret Pep 25.6 Urine Color Urine Clarity Urine pH Ur Specific Leon Urine Protein Urine Glucose (UA) Urine Ketones Urine Blood Urine Nitrate Urine Bilirubin Urine Urobilinogen Ur Leukocyte Esterase Urine WBC (Auto) Urine RBC (Auto) Ur Squamous Epith Cells Urine Bacteria Urine HCG, Qual 05/05/18 22:46 WBC RBC Hgb Hct MCV MCH MCHC RDW Plt Count MPV Neut % (Auto) Lymph % (Auto) Ector % (Auto) Eos % (Auto) Baso % (Auto) Neut # (Auto) Lymph # (Auto) Ector # (Auto) Eos # (Auto) Baso # (Auto) Hemoglobin A1c Troponin I NT-Pro-B Natriuret Pep Urine Color Yellow Urine Clarity Hazy Urine pH 5.0 Ur Specific Leon 1.015 Urine Protein Negative Urine Glucose (UA) Normal Urine Ketones 1+ H Urine Blood 1+ H Urine Nitrate Negative Urine Bilirubin Negative Urine Urobilinogen Normal Ur Leukocyte Esterase Neg Urine WBC (Auto) 1 Urine RBC (Auto) 7 H Ur Squamous Epith Cells 14 H Urine Bacteria Rare Urine HCG, Qual Negative Assessment & Plan (1) Asthma exacerbation Status: Acute Comment: IV steroids. Nebulizer treatment. Peak flow every shift. Nadia
--- NOTE | 2018-05-06 22:35 | CP.PCM.PN ---
Subjective - Subjective Subjective: dictated Objective - Vital Signs/Intake and Output Vital Signs (last 24 hours): Temp Pulse Resp BP Pulse Ox 98.0 F 85 20 118/70 94 L 05/06/18 15:15 05/06/18 16:00 05/06/18 15:15 05/06/18 15:15 05/06/18 15:15 - Medications Medications: Current Medications Albuterol Sulfate (Albuterol 0.083% Inhal Rupinder (2.5 Mg/3 Ml) Ud) 2.5 mg INH RQ6 [facility] Last Admin: 05/06/18 19:34 Dose: 2.5 mg Enoxaparin Sodium (Lovenox) 40 mg SC DAILY [facility] Last Admin: 05/06/18 09:37 Dose: 40 mg Guaifenesin (Robitussin) 200 mg PO Q4H PRN PRN Reason: Cough and congestion Last Admin: 05/06/18 21:29 Dose: 200 mg Influenza Virus Vaccine (Fluzone Quad [id number]) 60 mcg IM .ONCE ONE Stop: 05/07/18 10:01 Methylprednisolone (Solu-Medrol) 40 mg IV Q6 [facility] Montelukast Sodium (Singulair) 10 mg PO HS [facility] Last Admin: 05/06/18 21:29 Dose: 10 mg Pantoprazole Sodium (Protonix Ec Tab) 40 mg PO DAILY [facility] Last Admin: 05/06/18 18:45 Dose: 40 mg Pneumococcal Polyvalent Vaccine (Pneumovax 23 Vaccine) 0.5 ml IM .ONCE ONE Stop: 05/07/18 10:01 - Labs Labs: 05/05/18 18:33 05/05/18 18:33
--- NOTE | 2018-05-06 23:39 | CARD ---
APPROVED REPORT Date of service: 05/05/2018 EKG Measurement Heart [id number] <Conclusion> Normal sinus rhythm Possible Left atrial enlargement Left ventricular hypertrophy Abnormal ECG
[2018-05-07] MEDS: MethylPREDNISolone 40 mg Vial IV SCH ×4 (00:15→17:26)
--- NOTE | 2018-05-07 03:04 | PN ---
DATE: 05/06/2018 SUBJECTIVE: Cyn is feeling less cough, less shortness of breath, less wheezing. She denies any chest pain. PHYSICAL EXAMINATION: VITAL SIGNS: Blood pressure 118/70, pulse 80, respiratory rate 20, and temperature 98. LUNGS: Bilateral inspiratory and expiratory rhonchi. CARDIOVASCULAR SYSTEM: PMI not localized. S1 and S2 regular. ABDOMEN: Soft. EXTREMITIES: A +4 nonpitting edema. ASSESSMENT: 1. Acute exacerbation of bronchial asthma. 2. Tracheobronchitis. 3. Chronic lymphedema. PLAN: Continue current medications, Solu-Medrol, oxygen nebulizer treatment. Last Hollingsworth MD
[2018-05-07] MEDS: Pantoprazole 40 mg EC Tab PO SCH (09:41)
[2018-05-07] MEDS: Enoxaparin 40 mg Syringe SC SCH (09:41)
[2018-05-07] MEDS: guaiFENesin 200 mg/10 ml Syrup UD PO PRN (09:48)
[2018-05-07] MEDS ORDERED: Influenza Vaccine 60 MCG/0.5 ML SYR (3 yr & up) IM ONE (10:00)
[2018-05-07] MEDS ORDERED: Pneumococcal 23-Valent Vaccine IM ONE (10:00)
[2018-05-07] MEDS ORDERED: Promethazine/Cod 6.25mg-10mg/5ml Syr UD PO PRN (12:40)
--- NOTE | 2018-05-07 17:36 | CP.PCM.PN ---
Subjective - Date & Time of Evaluation Date of Evaluation: 05/07/18 Time of Evaluation: 08:00 - Subjective Subjective: Patient seen and examined at bedside, lying down comfortably. Afebrile and in no acute distress. Pt admits to improved SOB and cough Pt denies fever, chills, chest pain, nausea or vomiting B/l Ronchi are noted on examination 05/06/18 Echo : pending read Order IgE levels and start pt on peak flow O2 therapy. Continue pt on IV steriods, nebulizer tx, and Singulair Objective - Vital Signs/Intake and Output Vital Signs (last 24 hours): Temp Pulse Resp BP Pulse Ox 97.7 F 83 20 127/83 96 05/07/18 15:10 05/07/18 15:10 05/07/18 15:10 05/07/18 15:10 05/07/18 15:10 Intake and Output: 05/07/18 05/07/18 06:59 18:59 Intake Total 120 Balance 120 - Medications Medications: Current Medications Albuterol Sulfate (Albuterol 0.083% Inhal Rupinder (2.5 Mg/3 Ml) Ud) 2.5 mg INH RQ6 [facility] Last Admin: 05/06/18 19:34 Dose: 2.5 mg Enoxaparin Sodium (Lovenox) 40 mg SC DAILY [facility] Last Admin: 05/07/18 09:41 Dose: 40 mg Methylprednisolone (Solu-Medrol) 40 mg IV Q6 [facility] Last Admin: 05/07/18 17:26 Dose: 40 mg Montelukast Sodium (Singulair) 10 mg PO HS [facility] Last Admin: 05/06/18 21:29 Dose: 10 mg Pantoprazole Sodium (Protonix Ec Tab) 40 mg PO DAILY [facility] Last Admin: 05/07/18 09:41 Dose: 40 mg Promethazine HCl/Codeine (Phenergan/Codeine Oral Syrup) 5 ml PO Q6 PRN PRN Reason: Cough - Labs Labs: 05/05/18 18:33 05/05/18 18:33 Assessment and Plan (1) Asthma exacerbation Status: Acute
--- NOTE | 2018-05-07 18:01 | CARD ---
APPROVED REPORT Date of service: 05/07/2018 EXAM: Two-dimensional and M-mode echocardiogram with Doppler and color Doppler. Other Information Quality : GoodRhythm : INDICATION Dyspnea Congestive Heart Failure 2D DIMENSIONS IVSd0.8 (0.7-1.1cm)LVDd4.7 (3.9-5.9cm) PWd0.8 (0.7-1.1cm)LA Dknchf38 (18-58mL) LVDs3.0 (2.5-4.0cm)FS (%) 36.2 % LVEF (%)65.9 (>50%)LVEF (Martinez's)57.26 % M-Mode DIMENSIONS Left Atrium (MM)3.68 (2.5-4.0cm)IVSd0.87 (0.7-1.1cm) Aortic Root2.88 (2.2-3.7cm)LVDd5.07 (4.0-5.6cm) Aortic Cusp Exc.2.15 (1.5-2.0cm)PWd0.91 (0.7-1.1cm) FS (%) 36 %LVDs3.24 (2.0-3.8cm) LVEF (%)65 (>50%) Mitral Valve MV E Sqtczpae90.4cm/sMV A Vybpexoe86.3cm/sE/A ratio1.2 TDI Lateral E' Peak V10.42cm/sMedial E' Peak V7.97cm/sE/Lateral E'8.4 E/Medial E'11.0 Tricuspid Valve TR Peak Ritnbrgi807wp/sTR Peak Gr.50gcHqEVIK28ydEb LEFT VENTRICLE The left ventricle is normal size. There is normal left ventricular wall thickness. The left ventricular function is normal. The left ventricular ejection fraction is within the normal range. There is normal LV segmental wall motion. The left ventricular diastolic function is normal. Normal left atrial pressure. RIGHT VENTRICLE The right ventricle is normal size. The right ventricular systolic function is normal. ATRIA The left atrium size is normal. The right atrium size is normal. The interatrial septum is intact with no evidence for an atrial septal defect. AORTIC VALVE The aortic valve is normal in structure. No aortic regurgitation is present. There is no aortic valvular stenosis. MITRAL VALVE The mitral valve is normal in structure. There is no mitral valve regurgitation noted. TRICUSPID VALVE The tricuspid valve is normal in structure. There is no tricuspid valve regurgitation noted. PULMONIC VALVE The pulmonary valve is normal in structure. GREAT VESSELS The aortic root is normal in size. The IVC is normal in size and collapses >50% with inspiration. PERICARDIAL EFFUSION There is no pericardial effusion. <Conclusion> Normal bi-ventricular function. No valvular abnormality. No pericardial effusion.
[2018-05-07] MEDS: Albuterol 0.083% Inhal Sol (2.5 mg/3 mL) UD INH SCH (19:31)
[2018-05-08] MEDS: MethylPREDNISolone 40 mg Vial IV SCH ×4 (00:13→17:50)
--- NOTE | 2018-05-08 00:58 | CP.PCM.PN ---
Subjective - Date & Time of Evaluation Date of Evaluation: 05/07/18 - Subjective Subjective: dictated Objective - Vital Signs/Intake and Output Vital Signs (last 24 hours): Temp Pulse Resp BP Pulse Ox 97.8 F 76 20 117/78 95 05/07/18 23:00 05/07/18 23:00 05/07/18 23:00 05/07/18 23:00 05/07/18 23:00 - Medications Medications: Current Medications Albuterol Sulfate (Albuterol 0.083% Inhal Rupinder (2.5 Mg/3 Ml) Ud) 2.5 mg INH RQ6 [facility] Last Admin: 05/07/18 19:31 Dose: 2.5 mg Enoxaparin Sodium (Lovenox) 40 mg SC DAILY [facility] Last Admin: 05/07/18 09:41 Dose: 40 mg Methylprednisolone (Solu-Medrol) 40 mg IV Q6 [facility] Last Admin: 05/08/18 00:13 Dose: 40 mg Montelukast Sodium (Singulair) 10 mg PO HS [facility] Last Admin: 05/07/18 22:02 Dose: 10 mg Pantoprazole Sodium (Protonix Ec Tab) 40 mg PO DAILY [facility] Last Admin: 05/07/18 09:41 Dose: 40 mg Promethazine HCl/Codeine (Phenergan/Codeine Oral Syrup) 5 ml PO Q6 PRN PRN Reason: Cough Last Admin: 05/07/18 22:30 Dose: 5 ml - Labs Labs: 05/05/18 18:33 05/05/18 18:33
[2018-05-08] MEDS: Albuterol 0.083% Inhal Sol (2.5 mg/3 mL) UD INH SCH ×3 (01:19→13:50)
--- NOTE | 2018-05-08 05:33 | PN ---
DATE: 05/08/2018 SUBJECTIVE: She is coughing. She is short of breath. She is wheezing. She denies any nausea, vomiting, or diarrhea. The patient has the sputum production, body ache. Echocardiogram is consistent with normal LV function. PHYSICAL EXAMINATION: VITAL SIGNS: Blood pressure 117/78, pulse 76, respiratory rate 20, and temperature 97.8. LUNGS: Bilateral inspiratory and expiratory rhonchi. CARDIOVASCULAR SYSTEM: S1 and S2 regular. ABDOMEN: Soft. ASSESSMENT: 1. Tracheobronchitis. 2. Acute exacerbation of bronchial asthma. PLAN: Continue current medications. Monitor the patient. Last Hollingsworth MD
[2018-05-08] MEDS: Pantoprazole 40 mg EC Tab PO SCH (10:34)
[2018-05-08] MEDS: Enoxaparin 40 mg Syringe SC SCH (10:34)
[2018-05-08 11:28] LABS: BASO % 0.1 % (0.0-2.0); HEMOGLOBIN 13.8 g/dL (11.0-16.0); LYMPH # 1.4 K/uL (1.0-4.3); LYMPH % 11.9 % (20.0-40.0); MEAN CELL VOLUME 84.2 fL (81.0-99.0); MEAN CORPUSCULAR HEMOGLOBIN 27.9 pg (27.0-31.0); MEAN CORPUSCULAR HGB CONC 33.1 g/dL (33.0-37.0); MEAN PLATELET VOLUME 9.4 fL (7.2-11.7); MONO # 0.4 K/uL (0.0-0.8); MONO % 3.5 % (0.0-10.0); NEUT # 9.6 K/uL (1.8-7.0); NEUT % 84.5 % (50.0-75.0); RBC 4.97 Mil/uL (3.80-5.20); RED CELL DISTRIBUTION WIDTH 14.6 % (11.5-14.5); WHITE BLOOD COUNT 11.4 K/uL (4.8-10.8)
[2018-05-08 11:56] LABS: ALB/GLOB RATIO 1.2 (1.0-2.1); ALBUMIN 4.3 g/dL (3.5-5.0); ALT/SGPT 21 U/L (9-52); AST/SGOT 14 U/L (14-36); BLOOD UREA NITROGEN 22 mg/dL (7-17); CALCIUM 9.9 mg/dl (8.6-10.4); GFR NON-AFRICAN AMERICAN > 60
[2018-05-08] MEDS ORDERED: Promethazine DM 6.25 mg-15 mg/5 ml Syrup PO PRN (11:56)
--- NOTE | 2018-05-08 12:48 | CP.PCM.PN ---
Subjective - Date & Time of Evaluation Date of Evaluation: 05/08/18 Time of Evaluation: 10:40 - Subjective Subjective: Patient seen and examined at bedside, lying down comfortably. Afebrile and in no acute distress. Pt admits to improved SOB and cough Pt denies fever, chills, chest pain, nausea or vomiting 05/06/18 Echo : Normal LV function Schedule PFT's in office Patient needs Inhaler, spoke with nurse about arranging one. Continue pt on steriods, nebulizer tx, and Singulair until discharge Objective - Vital Signs/Intake and Output Vital Signs (last 24 hours): Temp Pulse Resp BP Pulse Ox 97.8 F 57 L 20 110/72 98 05/08/18 07:51 05/08/18 11:49 05/08/18 07:51 05/08/18 07:51 05/08/18 07:51 - Medications Medications: Current Medications Albuterol Sulfate (Albuterol 0.083% Inhal Rupinder (2.5 Mg/3 Ml) Ud) 2.5 mg INH RQ6 [facility] Last Admin: 05/08/18 08:56 Dose: 2.5 mg Enoxaparin Sodium (Lovenox) 40 mg SC DAILY [facility] Last Admin: 05/08/18 10:34 Dose: 40 mg Methylprednisolone (Solu-Medrol) 40 mg IV Q6 [facility] Last Admin: 05/08/18 05:51 Dose: 40 mg Montelukast Sodium (Singulair) 10 mg PO HS [facility] Last Admin: 05/07/18 22:02 Dose: 10 mg Pantoprazole Sodium (Protonix Ec Tab) 40 mg PO DAILY [facility] Last Admin: 05/08/18 10:34 Dose: 40 mg Promethazine HCl/Dextromethorphan (Phenergan Dm Syrup) 5 ml PO Q6H PRN PRN Reason: Cough Last Admin: 05/08/18 12:42 Dose: 5 ml - Labs Labs: 05/08/18 11:21 05/08/18 11:21 Assessment and Plan (1) Asthma exacerbation Status: Acute
--- NOTE | 2018-05-08 15:31 | CP.PCM.PN ---
Subjective - Date & Time of Evaluation Date of Evaluation: 05/08/18 Time of Evaluation: 15:30 Objective - Vital Signs/Intake and Output Vital Signs (last 24 hours): Temp Pulse Resp BP Pulse Ox 97.8 F 57 L 20 110/72 98 05/08/18 07:51 05/08/18 11:49 05/08/18 07:51 05/08/18 07:51 05/08/18 07:51 - Medications Medications: Current Medications Albuterol Sulfate (Albuterol 0.083% Inhal Rupinder (2.5 Mg/3 Ml) Ud) 2.5 mg INH RQ6 DA Last Admin: 05/08/18 13:50 Dose: 2.5 mg Enoxaparin Sodium (Lovenox) 40 mg SC DAILY [facility] Last Admin: 05/08/18 10:34 Dose: 40 mg Methylprednisolone (Solu-Medrol) 40 mg IV Q6 DA Last Admin: 05/08/18 12:50 Dose: 40 mg Montelukast Sodium (Singulair) 10 mg PO HS [facility] Last Admin: 05/07/18 22:02 Dose: 10 mg Pantoprazole Sodium (Protonix Ec Tab) 40 mg PO DAILY DA Last Admin: 05/08/18 10:34 Dose: 40 mg Promethazine HCl/Dextromethorphan (Phenergan Dm Syrup) 5 ml PO Q6H PRN PRN Reason: Cough Last Admin: 05/08/18 12:42 Dose: 5 ml - Labs Labs: 05/08/18 11:21 05/08/18 11:21 Assessment and Plan - Assessment and Plan (Free Text) Assessment: FOLLOW UP WITH DR GIRALDO IN HIS OFFICE ----CALL FOR APPOINTMENT FOLLOW UP WITH DR SUAREZ IN HIS OFFICE 1-2 WEEK -----CALL FOR APPOINTMENT CONTINUE HOME MEDICATION NEW PRESCRIPTION GIVEN BREO 200 MCG ONCE DAILY MEDROL DOSE PACK DIRECTED NEB TX PER DR SUAREZ PHERNEGAN DM PRN FOR COUGH ACTIVITY TOLERATED CALL DR GIRALDO OR GO TO THE EMERGENCY ROOM IF SYMPTOM RETURN OR WORSENING
[2018-05-08 17:39] VITALS: BP 124/81; PULSE 64; RESP 18; TEMP 97.4; O2SAT 96
--- NOTE | 2018-05-08 23:58 | CP.PCM.DIS ---
Provider - Provider Date of Admission: 05/07/18 16:38 Attending physician: Last Hollingsworth MD Consults: 05/06/18 16:29 Pulmonology Consult Routine Comment: Consulting Provider: Kumar Lynhc Consulting Physician: Kumar Lynch Reason for Consult: asthma Hospital Course - Lab Results Lab Results: Most Recent Lab Values WBC 11.4 K/uL (4.8-10.8) H D 05/08/18 11:21 RBC 4.97 Mil/uL (3.80-5.20) 05/08/18 11:21 Hgb 13.8 g/dL (11.0-16.0) 05/08/18 11:21 Hct 41.9 % (34.0-47.0) 05/08/18 11:21 MCV 84.2 fL (81.0-99.0) 05/08/18 11:21 MCH 27.9 pg (27.0-31.0) 05/08/18 11:21 MCHC 33.1 g/dL (33.0-37.0) 05/08/18 11:21 RDW 14.6 % (11.5-14.5) H 05/08/18 11:21 Plt Count 267 K/uL (130-400) 05/08/18 11:21 MPV 9.4 fL (7.2-11.7) 05/08/18 11:21 Neut % (Auto) 84.5 % (50.0-75.0) H 05/08/18 11:21 Lymph % (Auto) 11.9 % (20.0-40.0) L 05/08/18 11:21 [place] % (Auto) 3.5 % (0.0-10.0) 05/08/18 11:21 Eos % (Auto) 0.0 % (0.0-4.0) 05/08/18 11:21 Baso % (Auto) 0.1 % (0.0-2.0) 05/08/18 11:21 Neut # (Auto) 9.6 K/uL (1.8-7.0) H 05/08/18 11:21 Lymph # (Auto) 1.4 K/uL (1.0-4.3) 05/08/18 11:21 [place] # (Auto) 0.4 K/uL (0.0-0.8) 05/08/18 11:21 Eos # (Auto) 0.0 K/uL (0.0-0.7) 05/08/18 11:21 Baso # (Auto) 0.0 K/uL (0.0-0.2) 05/08/18 11:21 Sodium 136 mmol/L (132-148) 05/08/18 11:21 Potassium 5.1 mmol/L (3.6-5.2) 05/08/18 11:21 Chloride 97 mmol/L (98-107) L 05/08/18 11:21 Carbon Dioxide 26 mmol/L (22-30) 05/08/18 11:21 Anion Gap 18 (10-20) 05/08/18 11:21 BUN 22 mg/dL (7-17) H 05/08/18 11:21 Creatinine 0.7 mg/dL (0.7-1.2) 05/08/18 11:21 Est GFR ( Amer) > 60 05/08/18 11:21 Est GFR (Non-Af Amer) > 60 05/08/18 11:21 Random Glucose 351 mg/dL (65-105) H 05/08/18 11:21 Hemoglobin A1c 6.4 % (4.2-6.5) 05/05/18 19:09 Calcium 9.9 mg/dl (8.6-10.4) 05/08/18 11:21 Total Bilirubin 0.4 mg/dL (0.2-1.3) 05/08/18 11:21 AST 14 U/L (14-36) D 05/08/18 11:21 ALT 21 U/L (9-52) 05/08/18 11:21 Alkaline Phosphatase 117 U/L (38-126) 05/08/18 11:21 Troponin I < 0.0120 ng/mL (0.00-0.120) 05/05/18 18:33 NT-Pro-B Natriuret Pep 25.6 pg/mL (0-450) 05/05/18 18:33 Total Protein 8.0 g/dL (6.3-8.3) 05/08/18 11:21 Albumin 4.3 g/dL (3.5-5.0) 05/08/18 11:21 Globulin 3.7 gm/dL (2.2-3.9) 05/08/18 11:21 Albumin/Globulin Ratio 1.2 (1.0-2.1) 05/08/18 11:21 Urine Color Yellow (YELLOW) 05/05/18 22:46 Urine Clarity Hazy (Clear) 05/05/18 22:46 Urine pH 5.0 (5.0-8.0) 05/05/18 22:46 Ur Specific Dawson 1.015 (1.003-1.030) 05/05/18 22:46 Urine Protein Negative mg/dL (NEGATIVE) 05/05/18 22:46 Urine Glucose (UA) Normal mg/dL (Normal) 05/05/18 22:46 Urine Ketones 1+ mg/dL (NEGATIVE) H 05/05/18 22:46 Urine Blood 1+ (NEGATIVE) H 05/05/18 22:46 Urine Nitrate Negative (NEGATIVE) 05/05/18 22:46 Urine Bilirubin Negative (NEGATIVE) 05/05/18 22:46 Urine Urobilinogen Normal mg/dL (0.2-1.0) 05/05/18 22:46 Ur Leukocyte Esterase Neg Robel/uL (Negative) 05/05/18 22:46 Urine WBC (Auto) 1 /hpf (0-5) 05/05/18 22:46 Urine RBC (Auto) 7 /hpf (0-3) H 05/05/18 22:46 Ur Squamous Epith Cells 14 /hpf (0-5) H 05/05/18 22:46 Urine Bacteria Rare (<OCC) 05/05/18 22:46 Urine HCG, Qual Negative (NEGATIVE) 05/05/18 22:46 Discharge Exam - Head Exam Head Exam: ATRAUMATIC, NORMOCEPHALIC Discharge Plan - Discharge Medications Prescriptions: Albuterol 0.083% [Albuterol 0.083% Inhal Rupinder (2.5 mg/3 ml) UD] 2.5 mg INH RQ6 30 Days neb Fluticasone/Vilanterol [Breo Ellipta 200-25 Mcg INH] 1 each IH DAILY 30 Days Methylprednisolone [Medrol Dose Pack (21 tabs)] 4 mg PO DAILY #21 mg Promethazine DM [Phenergan DM Syrup] 5 ml PO Q6H PRN 10 Days cup PRN Reason: Cough Montelukast [Singulair] 10 mg PO HS 30 Days tab - Follow Up Plan Condition: STABLE Disposition: HOME/ ROUTINE Instructions: Heart Healthy Diet, Asthma, Adult (DC), Albuterol, Fluticasone and Vilanterol, Methylprednisolone, Montelukast, Promethazine Additional Instructions: FOLLOW UP WITH DR HOLLINGSWORTH IN HIS OFFICE ----CALL FOR APPOINTMENT FOLLOW UP WITH DR LYNCH IN HIS OFFICE 1-2 WEEK -----CALL FOR APPOINTMENT CONTINUE HOME MEDICATION NEW PRESCRIPTION GIVEN BREO 200 MCG ONCE DAILY MEDROL DOSE PACK DIRECTED NEB TX PER DR LYNCH PHERNEGAN DM PRN FOR COUGH ACTIVITY TOLERATED CALL DR HOLLINGSWORTH OR GO TO THE EMERGENCY ROOM IF SYMPTOM RETURN OR WORSENING Referrals: Kumar Lynch MD [Staff Provider] - Last Hollingsworth MD [Staff Provider] -
--- NOTE | 2018-05-09 07:21 | DS ---
DISCHARGE DIAGNOSES: 1. Tracheobronchitis. 2. Acute exacerbation of bronchial asthma. 3. Lymphedema. HISTORY OF PRESENT ILLNESS: This is a 48-year-old female with history of lymphedema and bronchial asthma with mild intermittent asthma, who came in because of cough, congestion, shortness of breath, wheezing, thick white sputum production, generalized body aches. The patient was started on oxygen nebulizer, Solu-Medrol, antibiotic. The patient's condition improved. She felt better. Chest x-ray denies any poor infiltrate. Blood work showed WBC 11.4, hemoglobin 13.8, hematocrit 41.9, platelets 267. Sodium 136, potassium 5.1, chloride 97, bicarb 26, BUN 22, creatinine 0.7. LFTs are normal. Urinalysis are normal. PHYSICAL EXAMINATION: VITAL SIGNS: Blood pressure 124/81, pulse 64, respiratory rate 18, temperature 97.4. LUNGS: Decreased air entry. Positive rhonchi. PLAN: Discharge the patient. Last Hollingsworth MD
== END 2018-05-08 18:12 | disposition home or self-care (01) | DRG 203 ==
LOC: C.ER 14:19 → C.9E 19:03 → C.6T 05-06 13:45 → OBSVTOIN 05-07 16:38
PROVIDERS: ADMIT Internal Medicine; ATTEND Internal Medicine
DX: J45.901 Unspecified asthma with (acute) exacerbation (principal); I89.0 Lymphedema, not elsewhere classified; J06.9 Acute upper respiratory infection, unspecified; I87.2 Venous insufficiency (chronic) (peripheral)

== ENCOUNTER 2018-07-30 10:01 | Outpatient (CLI) | payer BC | END 2018-07-30 10:02 | disposition home or self-care (01) | LOC: C.CTH 10:01 ==

== ENCOUNTER → 2018-10-13 | Outpatient (CLI) | payer BC | LOC: C.USIC 10:53 | DX: E04.1 Nontoxic single thyroid nodule (principal) ==

== ENCOUNTER → 2018-10-13 | Outpatient (CLI) | payer BC | LOC: C.MAMMO 11:03 | DX: Z12.31 Encounter for screening mammogram for malignant neoplasm of breast (principal) ==